=== PATIENT | female | born 1980 | race Caucasian/White ===

== ENCOUNTER 2016-12-31 16:50 | Emergency (ER) | payer MEDICAID ==
[~2016-12-31] VITALS: Ht 160 cm; Wt 110.1 kg
[2016-12-31] MEDS ORDERED: FUROSEMIDE 20 MG TABLET PO ONE (18:00)
[2016-12-31 18:39] LABS: BLOOD UREA NITROGEN 17 mg/dL (7-18)
[2016-12-31 18:47] LABS: IS PT STATUS REG ER OR PRE ER? YES
[2016-12-31 19:04] VITALS: BP 144/86
== END 2016-12-31 19:07 | disposition home or self-care (01) ==
LOC: ED 18:10
DX: R07.89 Other chest pain (principal); R60.0 Localized edema; F15.10 Other stimulant abuse, uncomplicated; K08.89 Other specified disorders of teeth and supporting structures
CPT/HCPCS: 36415; 71010; 80048; 82040; 83880; 84443; 84484; 85025; 93005

== ENCOUNTER 2017-01-20 23:39 | Emergency (ER) | payer MEDICAID ==
[~2017-01-20] VITALS: Ht 160 cm; Wt 108.1 kg
[2017-01-21 01:02] LABS: ASPARTATE AMINO TRANSFERASE 21 U/L (15-37); BLOOD UREA NITROGEN 13 mg/dL (7-18)
[2017-01-21 01:54] VITALS: BP 113/72
[2017-01-21] MEDS ORDERED: FUROSEMIDE 40 MG TABLET PO ONE (03:00)
== END 2017-01-21 02:48 | disposition home or self-care (01) ==
LOC: ED 23:59
DX: R60.0 Localized edema (principal); M79.671 Pain in right foot; M79.651 Pain in right thigh; Z90.710 Acquired absence of both cervix and uterus; Z90.89 Acquired absence of other organs
CPT/HCPCS: 36415; 71010; 80053; 85025; 85610; 85730; 93005; 93970

== ENCOUNTER 2017-10-28 09:53 | Emergency (ER) | payer SELFPAY ==
[~2017-10-28] VITALS: Ht 160 cm; Wt 111.0 kg
[2017-10-28 12:25] VITALS: BP 120/63
== END 2017-10-28 12:53 | disposition home or self-care (01) ==
LOC: ED 10:48
DX: S86.911A Strain of unspecified muscle(s) and tendon(s) at lower leg level, right leg, initial encounter (principal); F17.200 Nicotine dependence, unspecified, uncomplicated; Z90.710 Acquired absence of both cervix and uterus; X58.XXXA Exposure to other specified factors, initial encounter; Y93.89 Activity, other specified; Y92.89 Other specified places as the place of occurrence of the external cause; Y99.8 Other external cause status
CPT/HCPCS: 93970; 99284

== ENCOUNTER 2018-02-10 23:11 | Emergency (ER) | payer OTHER ==
[~2018-02-10] VITALS: Ht 160 cm; Wt 109.5 kg
[2018-02-10 23:13] VITALS: BP 150/80
[2018-02-10 23:44] LABS: BASOPHILS # (AUTO) 0.02 x10^3/uL (0-0.1); BASOPHILS % (AUTO) 0 % (0-1); EOSINOPHILS # (AUTO) 0.18 x10^3/uL (0-0.4); EOSINOPHILS % (AUTO) 2 % (1-7); LYMPHOCYTES # (AUTO) 2.89 x10^3/uL (1-3.4); LYMPHOCYTES % (AUTO) 28 % (22-44); MD NO; MEAN CORPUSCULAR HEMOGLOBIN 31.2 pg (27.0-34.8); MEAN CORPUSCULAR VOLUME 91.9 fL (80-100); MEAN PLATELET VOLUME 8.4 fL (7.4-10.4); MONOCYTES # (AUTO) 0.97 x10^3/uL (0.2-0.8); MONOCYTES % (AUTO) 10 % (2-9); NEUTROPHILS # (AUTO) 6.21 x10^3/uL (1.8-6.8); NEUTROPHILS % (AUTO) 61 % (42-75); PLATELET COUNT 366 x10^3/uL (130-400); RED CELL DISTRIBUTION WIDTH 14.2 % (9.6-15.2)
[2018-02-10 23:55] LABS: ALBUMIN 4.1 g/dL (3.4-5.0); ANION GAP 6 mmol/L (5-15); CALCIUM 8.9 mg/dL (8.5-10.1); CHLORIDE 107 mmol/L (98-107)
[2018-02-11 00:14] LABS: CULTURE INDICATED? YES; MICROSCOPIC INDICATED
== END 2018-02-11 01:14 | disposition home or self-care (01) ==
LOC: ED 23:37
DX: N92.1 Excessive and frequent menstruation with irregular cycle (principal); F17.210 Nicotine dependence, cigarettes, uncomplicated; Z90.89 Acquired absence of other organs; Z90.710 Acquired absence of both cervix and uterus
CPT/HCPCS: 36415; 76830; 80048; 81001; 82040; 84703; 85025; 87086; 99285

== ENCOUNTER 2018-07-26 20:57 | Emergency (ER) | payer SELFPAY ==
[~2018-07-26] VITALS: Ht 160 cm; Wt 108.3 kg
[2018-07-26 21:03] VITALS: BP 136/91
[2018-07-26] MEDS ORDERED: HYDROcodone/APAP 5/325 TABLET ONE (21:41)
[2018-07-26] MEDS ORDERED: HYDROcodone/APAP 5/325 TABLET PO ONE (22:00)
--- NOTE | 2018-07-26 22:02 | NUR ---
REPORT TO HAKEEM TAPIA.
== END 2018-07-26 23:05 | disposition home or self-care (01) ==
LOC: ED 22:59
DX: K04.7 Periapical abscess without sinus (principal); K02.9 Dental caries, unspecified
CPT/HCPCS: 70100; 99283

== ENCOUNTER 2018-10-02 18:10 | Emergency (ER) | payer SELFPAY ==
[~2018-10-02] VITALS: Ht 160 cm; Wt 103.6 kg
[2018-10-02 18:14] VITALS: BP 122/83
== END 2018-10-02 19:15 | disposition home or self-care (01) ==
LOC: ED 18:45
DX: J06.9 Acute upper respiratory infection, unspecified (principal); M79.18 Myalgia, other site; Z90.710 Acquired absence of both cervix and uterus; Z90.49 Acquired absence of other specified parts of digestive tract; Z90.89 Acquired absence of other organs; Z72.9 Problem related to lifestyle, unspecified
CPT/HCPCS: 71046; 99283

== ENCOUNTER 2019-10-13 21:14 | Emergency (ER) | payer MEDICAID ==
[~2019-10-13] VITALS: Ht 160 cm; Wt 102.6 kg
[2019-10-13 22:03] LABS: BASOPHILS # (AUTO) 0.05 x10^3/uL (0-0.1); BASOPHILS % (AUTO) 1 % (0-1); EOSINOPHILS # (AUTO) 0.13 x10^3/uL (0-0.4); EOSINOPHILS % (AUTO) 1 % (1-7); LYMPHOCYTES # (AUTO) 2.53 x10^3/uL (1-3.4); LYMPHOCYTES % (AUTO) 27 % (22-44); MD NO; MEAN CORPUSCULAR HGB CONC 33.6 g/dL (32.4-35.8); MEAN CORPUSCULAR VOLUME 92.2 fL (80-100); MEAN PLATELET VOLUME 8.5 fL (7.4-10.4); MONOCYTES # (AUTO) 0.97 x10^3/uL (0.2-0.8); MONOCYTES % (AUTO) 10 % (2-9); NEUTROPHILS # (AUTO) 5.69 x10^3/uL (1.8-6.8); NEUTROPHILS % (AUTO) 61 % (42-75); PLATELET COUNT 338 x10^3/uL (130-400); RED CELL DISTRIBUTION WIDTH 13.8 % (9.6-15.2)
[2019-10-13 22:12] LABS: ALBUMIN 3.7 g/dL (3.4-5.0); ANION GAP 5 mmol/L (5-15); CALCIUM 9.3 mg/dL (8.5-10.1); CHLORIDE 107 mmol/L (98-107); CREATININE 1.05 mg/dL (0.55-1.02)
[2019-10-13 22:26] VITALS: BP 128/71
[2019-10-13 22:40] LABS: CULTURE INDICATED? YES; MICROSCOPIC INDICATED
== END 2019-10-13 23:04 ==
LOC: ED 22:14
DX: R10.31 Right lower quadrant pain (principal); F17.200 Nicotine dependence, unspecified, uncomplicated; Z90.710 Acquired absence of both cervix and uterus
CPT/HCPCS: 36415; 76830; 80048; 81001; 82040; 84703; 85025; 86850; 86900; 87086; 87147; 99284

== ENCOUNTER 2020-07-19 03:25 | Emergency (ER) | payer MEDICAID ==
[~2020-07-19] VITALS: Ht 160 cm; Wt 103.0 kg
[2020-07-19 03:29] VITALS: BP 138/79
--- NOTE | 2020-07-19 03:49 | NUR ---
cc of chest tightness for a few hours in middle/left chest that does not radiate and feeling disoriented. pt denies sob, n/v. pt states she cannot describe her feelings of being disoriented but denies any confusion and is a&ox4. at bedside. pt connected to air sampling and monitoring. call light within reach
[2020-07-19] MEDS ORDERED: ASPIRIN 81 MG TABLET CHEW ONE (04:00)
[2020-07-19] MEDS ORDERED: ASPIRIN 81 MG TABLET CHEW PO ONE (04:00)
--- NOTE | 2020-07-19 04:33 | NUR ---
refused us and labs. erp aware
--- NOTE | 2020-07-19 04:36 | NUR ---
patient refused repeat ekg. per patient " i'm good. no thanks."
== END 2020-07-19 04:53 | disposition home or self-care (01) ==
LOC: ED 04:47
DX: R07.9 Chest pain, unspecified (principal); R00.0 Tachycardia, unspecified; M79.605 Pain in left leg
CPT/HCPCS: 93005; 99283

== ENCOUNTER 2020-10-11 21:56 | Emergency (ER) | payer MEDICAID ==
[~2020-10-11] VITALS: Ht 160 cm; Wt 109.2 kg
[2020-10-11 21:59] VITALS: BP 139/70
== END 2020-10-11 22:32 | disposition home or self-care (01) ==
LOC: ED 22:15
DX: H60.502 Unspecified acute noninfective otitis externa, left ear (principal); K02.9 Dental caries, unspecified; F17.210 Nicotine dependence, cigarettes, uncomplicated
CPT/HCPCS: 99283